=== PATIENT | male | born 1960 | race Caucasian/White ===

== ENCOUNTER 2020-04-05 15:28 | Emergency (ER) | payer BC, SELFPAY ==
--- NOTE | ~2020-04-05 | XR_ITS ---
EXAMINATION: XR chest 1V portable DATE: 04/05/2020 17:01 INDICATION: Altered mental status TECHNIQUE: frontal view of the chest was obtained. COMPARISON: Chest radiograph dated 10/31/2017 FINDINGS: The lungs remain clear with no focal airspace opacities, pulmonary edema, pleural effusion or pneumot horax. The cardiomediastinal silhouette is normal. Visualized bones and soft tissues are unremarkable . IMPRESSION: 1. No acute cardiopulmonary disease. Reviewed, dictated and finalized at location A.
--- NOTE | ~2020-04-05 | CT_ITS ---
EXAMINATION: CT brain wo con DATE: 04/05/2020 17:46 INDICATION: Altered mental status TECHNIQUE: Computed tomography (CT) of the head was performed without intravenous contrast. Sagittal and coronal reconstructions were performed. The mA was adjusted according to patient size. Iterative reconstruction technique was employed. The dose-length product was 605.33 mGy-cm. COMPARISON: None FINDINGS: No acute intracranial hemorrhage, acute infarction or abnormal extra axial fluid collection. Ventricl es are normal and symmetric. No mass/mass effect. The orbits, paranasal sinuses and mastoid air cells are normal. IMPRESSION: 1. Normal head CT. Reviewed, dictated and finalized at location A. IMPRESSION: 1. Normal head CT.
--- NOTE | 2020-04-05 15:34 | ECG_ITS ---
Measurements Intervals [place] Rate: 130 P: 64 AK: 158 QRS: 39 QRSD: 95 T: -15 QT: 305 QTc: 450 Interpretive Statements SINUS TACHYCARDIA FREQUENT VENTRICULAR PREMATURE COMPLEXES BORDERLINE ST-T WAVE ABNORMALITY- INFERIOR LEADS ABNORMAL ECG Electronically Signed On 04-05-2020 16:01:18 CDT by Santiago Delgado D.O.
[2020-04-05] MEDS: OLANZapine 10 MG INJ VIAL IM (15:40)
[2020-04-05] MEDS: WATER, STERILE FOR INJECTION 10 ML VIAL XX (15:40)
[2020-04-05 15:41] VITALS: BP 126/97; PULSE 130; RESP 20; TEMP 37.7; O2SAT 100
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
[2020-04-05 16:10] LABS: Basophils Percent Auto 0.3 % (0.2-1.2); Eosinophils Percent Auto 0.5 % (0-4.4); Hematocrit 40.7 % (42.0-52.0); Hemoglobin 14.3 g/dL (14.0-18.0); Immature Granulocyte Absolute 0.04 K/mm3 (0.00-0.031); Immature Granulocyte Percent A 0.5 % (0-0.5); Lymphocytes Absolute Auto 1.06 K/mm3 (0.9-3.2); Lymphocytes Percent Auto 13.7 % (18.3-44.2); Mean Corpuscular HGB Conc 35.1 g/dl (32-36); Mean Corpuscular Volume 85.3 fl (80-100); Mean Platelet Volume 10.7 fl (7.4-10.4); Monocytes Absolute Auto 0.4 K/mm3 (0.1-0.6); Monocytes Percent Auto 5.7 % (2.6-8.5); Neutrophils Absolute Auto 6.2 K/mm3 (1.3-6.7); Neutrophils Percent Auto 79.3 % (45.5-73.1); Platelet Count Result 205 k/mm3 (150-375); Red Blood Count 4.77 M/mm3 (4.6-6.20); Red Cell Distribution Width 12.6 % (11.5-14.5); White Blood Count 7.8 K/mm3 (4.5-10.0)
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
[2020-04-05 16:19] LABS: Prothrombin Time 12.7 Seconds (11.1-14.7)
[2020-04-05 16:23] LABS: Ethanol < 10 mg/dL (<10)
[2020-04-05 16:24] LABS: Alanine Aminotransferase 42 U/L (4-50); Albumin Level 4.4 g/dL (3.5-5.1); Alkaline Phosphatase 93 U/L (38-126); Aspartate Amino Transferase 39 U/L (17-59); Bilirubin,Total 0.5 mg/dL (0.2-1.3); Blood Urea Nitrogen 23 mg/dL (9-20); Calcium 9.5 mg/dL (8.4-10.2); Carbon Dioxide 21 mmol/L (22-30); Chloride 103 mmol/L (98-107); Creatine Kinase 453 U/L (55-170); Estimated Glomerular Filt Rate > 60; Glucose 155 mg/dL (75-110); Potassium 3.4 mmol/L (3.4-5.0); Sodium 135 mmol/L (137-145)
[2020-04-05 16:36] LABS: Troponin I < 0.012 ng/mL (0.000-0.034)
[2020-04-05 17:01] VITALS: BP 137/62; PULSE 123; RESP 22; RESP 24; O2SAT 100; O2SAT 96
[2020-04-05 17:02] LABS: Add Urine Microscopic? YES; Appearance Urine Clear (Clear); Bilirubin Urine Negative (Negative); Blood Urine Negative (Negative); Color Urine Yellow (Yellow); Glucose Urine UA Negative (Negative); Ketones Urine Trace mg/dL (Negative); Leukocyte Esterase Ur Negative LEU/UL (Negative); Mucus Urine Rare /lpf; Nitrate Urine Negative (Negative); Protein Urine Negative (Negative); Specific Grav Ur 1.023 (1.001-1.035); Urobilinogen Urine Negative mg/dL (<2.0); WBC Urine 0-3 /hpf
[2020-04-05] MEDS: SODIUM CHLORIDE 0.9% IV 1,000 ML 999 ML IV CONT (17:07)
[2020-04-05 17:14] LABS: Amphetamine Screen Urine Negative (Negative); Barbiturate Screen Urine Negative (Negative); Benzodiazepines Screen Urine Negative (Negative); Cannabinoid Screen Urine Positive (Negative); Cocaine Screen Urine Negative (Negative); Methadone Screen Urine Negative (Negative); Opiate Screen Urine Negative (Negative); Phencyclidine Screen Urine Negative (Negative)
[2020-04-05 17:15] VITALS: BP 117/82; PULSE 109; RESP 12; O2SAT 100
[2020-04-05] MEDS: ACETAMINOPHEN 500 MG TABLET 1000 MG PO (17:49)
[2020-04-05 18:46] VITALS: BP 134/88; PULSE 88; RESP 19; O2SAT 99
[2020-04-05 22:28] VITALS: BP 117/72; PULSE 67; RESP 18; TEMP 36.6; O2SAT 98
--- NOTE | 2020-04-05 22:44 | PC.NURSE ---
Paperwork faxed to [facility] at this time.
--- NOTE | 2020-04-05 22:49 | PC.NURSE ---
Addendum entered by Elsa Oviedo 04/05/20 23:36: Received fax confirmation. Successful transmission Original Note: Faxed packet to [facility], [place].
--- NOTE | 2020-04-05 23:54 | PC.NURSE ---
Paperwork faxed to [facility].
--- NOTE | 2020-04-06 00:50 | PC.NURSE ---
Per Chivo Becker, she will call back after reviewing chart.
[2020-04-06 02:52] VITALS: BP 137/74; PULSE 71; RESP 17; TEMP 37.1; O2SAT 100
--- NOTE | 2020-04-06 03:00 | PC.NURSE ---
Patient accepted at [facility]. Charge nurse to call back for report.
--- NOTE | 2020-04-06 04:33 | PC.NURSE ---
COVID questionnaire faxed back to [facility]. Awaiting call back at this time.
--- NOTE | 2020-04-06 05:11 | PC.NURSE ---
Patient denied at [facility], states patient is too physical and we have no beds available.
[2020-04-06 05:49] VITALS: BP 128/63; PULSE 71; RESP 16; O2SAT 94
--- NOTE | 2020-04-06 06:36 | PC.NURSE ---
COVID questionnaire re-faxed to [facility], per Chivo at [facility] weigher and charger will be calling for report on patient.
--- NOTE | 2020-04-06 07:24 | PC.NURSE ---
Assumed care of pt. Pt resting on bed. Sitter at bedside. Breakfast ordered
[2020-04-06] MEDS: ACETAMINOPHEN 500 MG TABLET 1000 MG PO (07:59)
[2020-04-06 08:04] VITALS: BP 165/96; PULSE 87; RESP 18; O2SAT 100
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
--- NOTE | 2020-04-06 08:15 | PC.NURSE ---
Pt son called and updated that pt will be transferred and that he wants him to come see him before he leaves.
[2020-04-06] MEDS: TELMISARTAN 40 MG TABLET 80 MG PO (08:28)
[2020-04-06] MEDS: LEVOTHYROXINE SODIUM 125 MCG TABLET PO (08:28)
--- NOTE | 2020-04-06 08:28 | PC.NURSE ---
[facility] called for transport. ETA [id number]
[2020-04-06 09:11] VITALS: BP 162/97
[2020-04-06] MEDS: LIOTHYRONINE SODIUM 5 MCG TABLET PO (09:11)
--- NOTE | 2020-04-06 09:26 | PC.NURSE ---
Pt son in the room, states we just want to sign out I state that they can't do that he says Well we are going to get a insurance processing clerk then Pt stating over and over I was traumatized, I was like a grape that got squeezed and juice came out, I had a panic attack, Im normal.
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
== END 2020-04-06 10:07 ==
PROVIDERS: Emergency Medicine; Emergency Provider Emergency Medicine; PCP Family Medicine
DX: F23 Brief psychotic disorder (principal); R00.0 Tachycardia, unspecified; R94.31 Abnormal electrocardiogram [ECG] [EKG]; I49.3 Ventricular premature depolarization; E78.5 Hyperlipidemia, unspecified; I10 Essential (primary) hypertension; E03.9 Hypothyroidism, unspecified
CPT/HCPCS: 36415; 51701; 70450; 71045; 80053; 80307; 81001; 82550; 84443; 84484; 85025; 85610; 85730; 93005; 96360; 96361; 96372; 99285; A9270; J7030

== ENCOUNTER 2020-04-12 16:29 | Observation (INO) | payer BC, SELFPAY ==
[2020-04-12] VITALS (10 sets, daily range): BP systolic 110–142; BP diastolic 62–88; PULSE 65–105; RESP 12–30; TEMP 35.8–36.8; O2SAT 94–99; BMI 31.8
--- NOTE | ~2020-04-12 | NM_ITS ---
EXAMINATION: NM russ stress w perfusion DATE: 04/13/2020 15:22 INDICATION: Elevated troponin TECHNIQUE: Rest images were obtained following intravenous administration of 10 mCi Tc99m tetrofosmin (Myoview). The patient was infused intravenously with Lexiscan (Regadenoson). Then, 28.9 mCi Tc99m t etrofosmin (Myoview) was administered intravenously, and stress images were obtained. Data was recons tructed into short axis and horizontal and vertical long axis SPECT images. Gated SPECT images were a lso obtained. COMPARISON: None. FINDINGS: Small mild nonreversible perfusion defect consistent with infarct involving the apical late ral and mid inferolateral segments. No significant reversibility appreciated to suggest ischemia. Th ere is normal left ventricular chamber size, wall motion and ejection fraction. Left ventricular eje ction fraction measures 61%. IMPRESSION: 1. Small mild infarct at the apical lateral and mid inferolateral segments without reversible ischemi a. 2. Left ventricular ejection fraction measuring 61%. Reviewed, dictated and finalized at location A. IMPRESSION: 1. Small mild infarct at the apical lateral and mid inferolateral segments with out reversible ischemia. 2. Left ventricular ejection fraction measuring 61%.
--- NOTE | ~2020-04-12 | CT_ITS ---
EXAMINATION: CTA chest PE protocol EXAM DATE: 04/12/2020 18:32 INDICATION: Shortness of breath and elevated d-dimer. TECHNIQUE: Spiral CTA of the chest (pulmonary arteries) was performed with 100 cc Omnipaque 350 intr avenous contrast injection. Images were acquired during the pulmonary arterial phase. Coronal maxi mum intensity projection 3D-reconstructions were created by the technologist on dedicated workstation . Axial, coronal and sagittal reformatted images were reviewed. The dose-length product (DLP) for t his examination was 691.29 mGy-cm. The exposure was tailored according to patient size (auto mA exp osure control), and iterative reconstruction (ASIR) was used as additional dose reduction technique. Comparison is made to prior examination from 06/05/2016. FINDINGS: Pulmonary arteries are well opacified and without intraluminal filling defects. No thora cic aortic dissection. There is mosaic attenuation involving both lungs, mostly in the lower lobes. This is suspected to be most likely air trapping, was present on prior study. Previously seen lingula r 7 mm opacity has resolved, was probably atelectasis. There are no pleural or pericardial effusions. Tracheobronchial tree is patent. There is no media stinal, hilar or axillary lymphadenopathy. There is no pneumothorax. Heart normal in size. Ther e is mild coronary arterial calcification, arterial sclerosis. Upper abdomen is unremarkable. Ther e is mild thoracic spondylosis without osteoblastic or osteolytic lesions identified. IMPRESSION: 1. No pulmonary emboli, or acute findings. 2. Mild basilar predominant Mosaic attenuation probably air trapping unchanged Reviewed, dictated and finalized at location A.
--- NOTE | 2020-04-12 16:48 | ECG_ITS ---
Measurements Intervals [place] Rate: 101 P: 37 [place]: 157 QRS: -5 QRSD: 93 T: 3 QT: 321 QTc: 417 Interpretive Statements SINUS TACHYCARDIA VENTRICULAR PREMATURE COMPLEX NONSPECIFIC ST ELEVATION IN ANT/LAT LEADS BORDERLINE ST-T WAVE ABNORMALITY- INFERIOR LEADS BORDERLINE ECG Electronically Signed On 04-12-2020 18:24:00 CDT by Santiago Delgado D.O.
--- NOTE | 2020-04-12 17:10 | ED.GENADULT ---
HPI - General Adult General Chief complaint: Recheck/Abnormal Lab/Rx Stated complaint: PCP THINKS IM HAVING A HEART ATTACK Time Seen by Provider: 04/12/20 16:37 Source: patient and other Mode of arrival: ambulatory Limitations: no limitations History of Present Illness HPI narrative: 60-year-old male A week ago he presented here acutely and violently psychotic in police custody and was sedated and ultimately transferred to [facility] He was stabilized, and they felt like his symptoms were medically induced due to a urinary tract infection and he was discharged from there yesterday Apparently at some point he was to receive a medication injection of some sort, seems likely that it may have been an antipsychotic and maybe even a long-acting antipsychotic as he says he was asked to sign a consent to get the shot so that he can go home. After getting the shot he reports that his blood pressure dropped and he had a syncopal episode. Subsequent to that he had an EKG done and a couple of troponins obtained It sounds like he may have been discharged before the results of those studies were reviewed He was contacted at home today by their medical hospitalist and advised to visit the ER here for further evaluation The patient reports no suspicious symptoms of any sort whatsoever, no chest pain shortness of breath sweats diaphoresis etc. since the episode of syncope He had a stress test done here it was normal The outside hospitalist did contact me and essentially confirm the story mentioned that the 2 troponins that he had were approximately 1.5 and 1.6, but unclear what their scale is and there were nonspecific but possibly ischemic changes on EKG Onset (ago): day(s) Related Data Home Medications Medication Instructions Recorded Confirmed liothyronine 5 mcg PO 04/06/20 telmisartan 80 mg PO 04/06/20 Allergies Allergy/AdvReac Type Severity Reaction Status Date / Time amlodipine Allergy Unknown Unknown Verified 04/12/20 16:42 benazepril Allergy Unknown Unknown Verified 04/12/20 16:42 lisinopril Allergy Unknown Unknown Verified 04/12/20 16:42 losartan Allergy Unknown Unknown Verified 04/12/20 16:42 Beta-Blockers AdvReac Palpitation Verified 04/12/20 16:43 (Beta-Adrenergic Bloc s Review of Systems Review of Systems: All systems reviewed & are unremarkable except as noted in HPI and below Constitutional: Constitutional: Denies chills, Denies fatigue, Denies fever(s), Denies headache(s) and Denies night sweats Eyes: Eyes: Denies change in vision, Denies loss of vision and Denies other visual disturbances ENT: Denies headache(s), Denies hoarseness, Denies epistaxis, Denies nasal congestion and Denies sore throat Cardiovascular: Cardiovascular: Denies chest pain, Denies leg edema, Denies palpitations and Denies dyspnea Respiratory: Respiratory: Denies cough, Denies dyspnea and Denies wheezing Gastrointestinal: Gastrointestinal: Denies abdominal pain, Denies diarrhea, Denies nausea and Denies vomiting Genitourinary: Genitourinary: Denies hematuria, Reports dysuria and Reports urinary frequency Musculoskeletal: Musculoskeletal: Denies abnormal gait, Denies deformity, Denies joint swelling, Denies muscle weakness and Denies numbness Integumentary/Breasts: Skin/Breast: Denies rash, Denies unusual bruising and Denies wounds Neurologic: Denies abnormal gait, Denies headache(s), Denies focal weakness, Denies loss of vision and Denies numbness Psychiatric: Psychiatric: Reports as per HPI Endocrine: Endocrine: Denies fatigue and Denies palpitations Hematologic/Lymphatic: Hematologic/Lymphatic: Denies easy bleeding and Denies easy bruising Allergic/Immunologic: Allergic/Immunologic: Denies wheezing PMFSH Past Medical History Medical History Anxiety Hemorrhoids HLD (hyperlipidemia) Hypertension Hypothyroidism Normal colonoscopy (~2015) Every 3-5 years
[2020-04-12 17:18] LABS: Basophils Percent Auto 0.4 % (0.2-1.2); Eosinophils Absolute Auto 0.2 K/mm3 (0-0.3); Eosinophils Percent Auto 2.6 % (0-4.4); Hematocrit 37.4 % (42.0-52.0); Immature Granulocyte Absolute 0.08 K/mm3 (0.00-0.031); Immature Granulocyte Percent A 1.1 % (0-0.5); Lymphocytes Absolute Auto 1.93 K/mm3 (0.9-3.2); Lymphocytes Percent Auto 25.4 % (18.3-44.2); Mean Corpuscular HGB Conc 34.8 g/dl (32-36); Mean Corpuscular Volume 86.2 fl (80-100); Mean Platelet Volume 10.3 fl (7.4-10.4); Monocytes Absolute Auto 0.8 K/mm3 (0.1-0.6); Monocytes Percent Auto 10.7 % (2.6-8.5); Neutrophils Absolute Auto 4.5 K/mm3 (1.3-6.7); Neutrophils Percent Auto 59.8 % (45.5-73.1); Platelet Count Result 227 k/mm3 (150-375); Red Blood Count 4.34 M/mm3 (4.6-6.20); Red Cell Distribution Width 12.2 % (11.5-14.5); White Blood Count 7.6 K/mm3 (4.5-10.0)
[2020-04-12 17:30] LABS: Alanine Aminotransferase 34 U/L (4-50); Alkaline Phosphatase 85 U/L (38-126); Aspartate Amino Transferase 31 U/L (17-59); Bilirubin,Total 0.3 mg/dL (0.2-1.3); Blood Urea Nitrogen 17 mg/dL (9-20); Calcium 8.9 mg/dL (8.4-10.2); Carbon Dioxide 22 mmol/L (22-30); Chloride 101 mmol/L (98-107); Estimated Glomerular Filt Rate > 60; Glucose 136 mg/dL (75-110); Potassium 4.3 mmol/L (3.4-5.0); Sodium 133 mmol/L (137-145)
[2020-04-12 17:33] LABS: Add Urine Microscopic? YES; Appearance Urine Clear (Clear); Bilirubin Urine Negative (Negative); Blood Urine 1+ (Negative); Color Urine Straw (Yellow); Glucose Urine UA Negative (Negative); Ketones Urine Negative (Negative); Leukocyte Esterase Ur Negative LEU/UL (Negative); Nitrate Urine Negative (Negative); Protein Urine Negative (Negative); RBC Urine 0-2 /hpf (0-2); Specific Grav Ur 1.012 (1.001-1.035); Urobilinogen Urine Negative mg/dL (<2.0); WBC Urine 0-3 /hpf
[2020-04-12 17:44] LABS: Troponin I 0.995 ng/mL (0.000-0.034)
[2020-04-12] MEDS: ENOXAPARIN 100 MG/ML SYRINGE SUB-Q (18:36)
--- NOTE | 2020-04-12 21:16 | ADMGEN ---
This patient, Seth Vazquez, was admitted to IMU Room 202-01. Patient/family oriented to hospital policies and general routines including ID bracelet, bed and alarms, visiting hours, pain management, procedures, bathroom and other care routines, personal items, smoking policy, room service/diet, and visiting hours. Valuables list has been completed. Information on how to activate the Rapid Response Team has been discussed. Patient/Family are encouraged to report perceived risks to care and to ask questions if they do not understand what they are told or what they should do.
[2020-04-12 21:28] LABS: Troponin I 0.914 ng/mL (0.000-0.034)
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
[2020-04-12] MEDS: CEPHALEXIN 500 MG CAPSULE PO (23:32)
[2020-04-12] MEDS: DIAZEPAM 5 MG TABLET PO (23:41)
[2020-04-13] VITALS (10 sets, daily range): BP systolic 118–129; BP diastolic 63–86; PULSE 16–86; RESP 14–20; TEMP 36.2–36.8; O2SAT 98–100
--- NOTE | 2020-04-13 | ECHO_ITS ---
Patient Info Name: Seth Vazquez Age: 60 years : 1960 Gender: Male Ht: 72 in Wt: 250 lbs BSA: 2.44 m2 BP: 118 / 63 mmHg Heart Rhythm: Sinus Rhythm Technical Quality: Good Exam Date: 04/13/2020 10:15 AM Exam Location: [facility] Pulmonary Patient Status: Inpatient Admit Date: 04/12/2020 Staff Ordering Physician: Joey Waldrop MD Agriculture Extension Specialist: Tong Raphael, MAHENDRA, RT Attending Provider: Marciano Marques MD Referring Physician: Benjie ROONEY; Exam Type: CA echo doppler color flow Study Info Indications I43 - Cardiomyopathy in diseases classified elsewhere Complete two-dimensional, color flow and Doppler transthoracic echocardiogram is performed. Summary 1. Normal left ventricular size with mild concentric hypertrophy. Normal left ventricular systolic function with no focal wall motion abnormalities. The estimated ejection fraction is 60-65%. However, the global longitudinal strain was diminished at -14%, suggesting early systolic dysfunction. Normal diastolic function. 2. Mildly dilated inferior vena cava which is poorly visualized. 3. Right ventricular chamber dimension is mildly enlarged with normal systolic function. 4. No significant valve disease. 5. Normal estimated pulmonary pressure. 6. Normal sinus rhythm. Left Ventricle Left ventricular chamber dimension is normal. Left ventricular systolic function is normal, estimated at 60-65%. There is mildly increased left ventricular wall thickness. Left ventricular septal wall motion is normal. The left ventricular diastolic function is normal. Global longitudinal strain is moderately elevated at 14 %. Right Ventricle Right ventricular chamber dimension is mildly enlarged with normal systolic function. Right ventricular systolic function is normal. Left Atria Left atrial chamber dimension is normal. Right Atria Right atrial chamber dimension is normal. Aortic Valve The aortic valve is trileaflet. There is no aortic valve sclerosis. There is no aortic valve stenosis. There is no aortic valve regurgitation. Pulmonic Valve The pulmonic valve is normal. There is no pulmonic valve stenosis. There is no pulmonic regurgitation. Mitral Valve The mitral valve has normal leaflets. There is no mitral valve stenosis. There is trace mitral valve regurgitation. Tricuspid Valve The tricuspid valve leaflets are normal. There is no significant tricuspid valve stenosis. There is trace tricuspid valve regurgitation. No pulmonary hypertension, estimated pulmonary arterial systolic pressure is 29 mmHg. Pericardium/Pleural The pericardium appears normal. There is no pericardial effusion. Inferior Vena Cava Mildly dilated inferior vena cava which is poorly visualized. Aorta The aortic root size at the sinus of Valsalva is normal. The prox ascending aorta size is normal. Left Ventricular Outflow Tract Name Value Normal LVOT 2D LVOT Diameter 2.3 cm LVOT Doppler LVOT Peak Gradient 2 mmHg LVOT Mean Gradient 1 mmHg LVOT VTI 14 cm
[2020-04-13 00:42] LABS: Troponin I 0.835 ng/mL (0.000-0.034)
[2020-04-13 05:52] LABS: Basophils Percent Auto 0.7 % (0.2-1.2); Eosinophils Absolute Auto 0.3 K/mm3 (0-0.3); Eosinophils Percent Auto 5.1 % (0-4.4); Hematocrit 37.6 % (42.0-52.0); Hemoglobin 12.5 g/dL (14.0-18.0); Immature Granulocyte Absolute 0.11 K/mm3 (0.00-0.031); Immature Granulocyte Percent A 1.9 % (0-0.5); Lymphocytes Absolute Auto 2.27 K/mm3 (0.9-3.2); Lymphocytes Percent Auto 39.9 % (18.3-44.2); Mean Corpuscular HGB Conc 33.2 g/dl (32-36); Mean Corpuscular Hemoglobin 29.7 pg (26-34); Mean Corpuscular Volume 89.3 fl (80-100); Mean Platelet Volume 10.5 fl (7.4-10.4); Monocytes Absolute Auto 0.7 K/mm3 (0.1-0.6); Monocytes Percent Auto 11.6 % (2.6-8.5); Neutrophils Absolute Auto 2.3 K/mm3 (1.3-6.7); Neutrophils Percent Auto 40.8 % (45.5-73.1); Platelet Count Result 206 k/mm3 (150-375); Red Blood Count 4.21 M/mm3 (4.6-6.20); Red Cell Distribution Width 12.6 % (11.5-14.5); White Blood Count 5.7 K/mm3 (4.5-10.0)
[2020-04-13 06:07] LABS: Alanine Aminotransferase 35 U/L (4-50); Albumin Level 3.6 g/dL (3.5-5.1); Alkaline Phosphatase 80 U/L (38-126); Aspartate Amino Transferase 27 U/L (17-59); Bilirubin,Total 0.1 mg/dL (0.2-1.3); Blood Urea Nitrogen 15 mg/dL (9-20); Calcium 8.7 mg/dL (8.4-10.2); Carbon Dioxide 27 mmol/L (22-30); Chloride 102 mmol/L (98-107); Estimated CRCL calculation 90 ml/min; Estimated Glomerular Filt Rate > 60; Glucose 102 mg/dL (75-110); Magnesium 2.3 mg/dL (1.6-2.3); Potassium 4.3 mmol/L (3.4-5.0); Sodium 135 mmol/L (137-145)
[2020-04-13] MEDS: LEVOTHYROXINE SODIUM 125 MCG TABLET PO (06:14)
[2020-04-13] MEDS: CEPHALEXIN 500 MG CAPSULE PO ×2 (06:14→19:41)
[2020-04-13 06:35] LABS: Prostate Specific Antigen 17.3 ng/mL (< OR = 4.0)
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
--- NOTE | 2020-04-13 09:25 | EST_ITS ---
Patient Info Name: Seth Vazquez Age: 60 years : 1960 Gender: Male Ht: 72 in Wt: 234 lbs BSA: 2.35 m2 Heart Rhythm: Sinus Rhythm Technical Quality: Excellent Exam Date: 04/13/2020 1:29 PM Exam Location: [facility] Stress Patient Status: Inpatient Admit Date: 04/12/2020 Staff Ordering Physician: Allison Moore MD Attending Provider: Marciano Marques MD Exercise Technologist: Ana Sarah, SUSANCS Nurse: Keke Frank, ANP, ACNP-BC Exam Type: CA stress russ w NM Study Info A regadenoson stress test was performed. Summary 1. No abnormal ST-T wave changes with lexiscan. 2. Please correlate with nuclear medicine images, reported separately. Protocol: Lexiscan Stress ECG Details Stage: REST Duration (min): 1 min : 59 sec HR (bpm): 77 SBP (mmHg): 113 DBP (mmHg): 82 Stage: REST Duration (min): 15 min : 58 sec HR (bpm): 78 SBP (mmHg): 113 DBP (mmHg): 82 Stage: STAGE 1 Duration (min): 1 min : 0 sec HR (bpm): 85 SBP (mmHg): 140 DBP (mmHg): 84 Stage: RECOVERY Duration (min): 1 min : 0 sec HR (bpm): 100 SBP (mmHg): 140 DBP (mmHg): 76 Stage: RECOVERY Duration (min): 2 min : 0 sec HR (bpm): 96 SBP (mmHg): 140 DBP (mmHg): 76 Stage: RECOVERY Duration (min): 3 min : 0 sec HR (bpm): 100 SBP (mmHg): 124 DBP (mmHg): 62 Stage: RECOVERY Duration (min): 3 min : 46 sec HR (bpm): 95 SBP (mmHg): 124 DBP (mmHg): 62 Rest HR: 78 bpm Peak HR: 103 bpm Rest Sys BP: 113 mmHg Peak Sys BP: 140 mmHg Max Pred HR: 162 bpm % Max Pred HR: 64 % Target HR: 138 bpm Max RPP: 14,420 bpm*mmHg BP Response: Normal blood pressure response Termination Reason: Completed protocol Cardiac Symptoms: Shortness of breath Total Time: 1 min : 0 sec Rest Chne BP: 82 mmHg Peak Chen BP: 84 mmHg Total Dose: 0.4 mg Resting ECG Normal sinus rhythm. Stress ECG No abnormal ST/T wave changes with exercise. Arrhythmias Occasional PVCs. Report Signatures
[2020-04-13] MEDS: LIOTHYRONINE SODIUM 5 MCG TABLET PO ×2 (09:51→19:42)
[2020-04-13] MEDS: ENOXAPARIN 120 MG/0.8 ML SYRINGE 115 MG SUB-Q (09:53)
[2020-04-13] MEDS: ASPIRIN 81 MG CHEWABLE TABLET PO (09:54)
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
--- NOTE | 2020-04-13 14:40 | PC.NURSE ---
1205- to cardiology dept for Lexiscan via w/c accompanied by staff
[2020-04-13] MEDS: TELMISARTAN 40 MG TABLET 80 MG PO (15:10)
--- NOTE | 2020-04-13 16:09 | PHAR ---
HOME MED- OMEPRAZOLE 40MG CAP PO DAILY VERIFIED AND SENT
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
--- NOTE | 2020-04-19 17:32 | PM.DS ---
DS: Admitting Diagnosis Admitting Diagnosis Admitting Diagnosis: Other specified abnormal findings of blood chemistry DS: Summary Time Spent with Patient Time attestation: Total time spent providing and/or coordinating discharge services: Discharge Plan Discharge Attending physician on discharge: Marciano Marques Consulting providers: Marbella Guerrier ; Willie Moreland ; Dionicio Huber ; Santiago Delgado ; Allison Moore Discharging Clinician: Marciano Marques Anticipated Discharge Date/Time: 04/13/20 19:46 Patient Disposition: Home, Self-Care Activity: as tolerated Diet: heart healthy Discharge Instructions: Please follow up with your doctor to discuss further about your elevated PSA as we have talked about. Call 911 if you develop chest pain or other worrisome symptoms. Follow up with [facility], [place] office at [facility] [address] the office will call you with an appointment with Dr Moore next week. Patient Instructions: Antibiotic Form, Chest Pain (DC), Chronic Hypertension (DC), Anxiety (GEN) Stand Alone Forms: General Discharge Information Follow-up/Referrals: Allison Moore MD [Physician] - None (The office will call you with an appointment next week) Discharge Medications: New atorvastatin 40 mg Tablet 40 mg PO DAILY Qty: 30 RF: 3 aspirin [Children's Aspirin] 81 mg Tablet,Chewable 81 mg PO DAILY@0800 Qty: 30 RF: 3 Continued liothyronine 5 mcg tablet 5 mcg PO BID RF: 0 telmisartan 80 mg tablet 80 mg PO DAILY RF: 0 sulfamethoxazole-trimethoprim 800-160 mg Tablet 1 tablet PO Q12H RF: 0 diazepam 2 mg Tablet 5 mg PO BID PRN (Reason: Anxiety) RF: 0 cephalexin 500 mg Capsule 500 mg PO Q6H RF: 0 omeprazole 40 mg capsule,delayed release(DR/EC) 40 mg PO DAILY RF: 0 levothyroxine [Synthroid] 125 mcg tablet 125 mcg PO DAILY Qty: 90 RF: 1 Date of admission: 04/12/20 18:50 Primary Care Provider: CATALINAANGY Admitting Provider: Marciano Marques Discharge Date/Time: 04/13/20 20:47 Attending physician on admission: Marciano Marques Condition: Stable Quality VTE Prophylaxis VTE prophylaxis: pharmacologic ordered
== END 2020-04-13 20:47 | disposition home or self-care (01) ==
LOC: ANHED 19:44 → ANHIMU 19:57
PROVIDERS: Nurse Practitioner; Admitting Provider Internal Medicine; Emergency Provider Emergency Medicine; PCP Family Medicine; Visit Provider Internal Medicine
DX: R79.89 Other specified abnormal findings of blood chemistry (principal); E03.9 Hypothyroidism, unspecified; F41.9 Anxiety disorder, unspecified; I10 Essential (primary) hypertension; N40.0 Benign prostatic hyperplasia without lower urinary tract symptoms; N39.0 Urinary tract infection, site not specified; I43 Cardiomyopathy in diseases classified elsewhere; Z79.899 Other long term (current) drug therapy; Z86.79 Personal history of other diseases of the circulatory system
CPT/HCPCS: 36415; 71275; 78452; 80053; 81001; 83735; 84153; 84443; 84484; 85025; 93005; 93017; 93306; 96372; 99285; A9270; A9502; G0378; J1650; J2785; Q9967

== ENCOUNTER 2020-04-28 16:02 | Outpatient (CLI) | payer BC, SELFPAY ==
[2020-04-28 16:32] LABS: Basophils Percent Auto 0.6 % (0.2-1.2); Eosinophils Absolute Auto 0.1 K/mm3 (0-0.3); Eosinophils Percent Auto 1.2 % (0-4.4); Hematocrit 39.4 % (42.0-52.0); Hemoglobin 13.8 g/dL (14.0-18.0); Immature Granulocyte Absolute 0.03 K/mm3 (0.00-0.031); Immature Granulocyte Percent A 0.4 % (0-0.5); Lymphocytes Absolute Auto 2.35 K/mm3 (0.9-3.2); Lymphocytes Percent Auto 32.4 % (18.3-44.2); Mean Corpuscular Hemoglobin 30.1 pg (26-34); Mean Corpuscular Volume 85.8 fl (80-100); Mean Platelet Volume 9.7 fl (7.4-10.4); Monocytes Absolute Auto 0.7 K/mm3 (0.1-0.6); Monocytes Percent Auto 10.2 % (2.6-8.5); Neutrophils Percent Auto 55.2 % (45.5-73.1); Platelet Count Result 242 k/mm3 (150-375); Red Blood Count 4.59 M/mm3 (4.6-6.20); Red Cell Distribution Width 12.9 % (11.5-14.5); White Blood Count 7.3 K/mm3 (4.5-10.0)
[2020-04-28 16:43] LABS: Add Urine Microscopic? YES; Appearance Urine Clear (Clear); Bilirubin Urine Negative (Negative); Blood Urine 2+ (Negative); Color Urine Straw (Yellow); Glucose Urine UA Negative (Negative); Ketones Urine Negative (Negative); Leukocyte Esterase Ur Negative LEU/UL (NEGATIVE); Nitrate Urine Negative (Negative); Protein Urine Negative (Negative); RBC Urine 0-2 /hpf (0-2); Specific Grav Ur 1.008 (1.001-1.035); Urobilinogen Urine Negative mg/dL (<2.0); WBC Urine 0-3 /hpf (0-3)
[2020-04-28 16:53] LABS: Alanine Aminotransferase 38 U/L (4-50); Albumin Level 4.4 g/dL (3.5-5.1); Alkaline Phosphatase 96 U/L (38-126); Aspartate Amino Transferase 30 U/L (17-59); Bilirubin,Total 0.5 mg/dL (0.2-1.3); Blood Urea Nitrogen 15 mg/dL (9-20); Carbon Dioxide 25 mmol/L (22-30); Chloride 100 mmol/L (98-107); Cholesterol 147 mg/dL (0-200); Estimated Glomerular Filt Rate > 60; Glucose 94 mg/dL (75-110); HDL Direct 34 mg/dL; Potassium 3.7 mmol/L (3.4-5.0); Sodium 134 mmol/L (137-145); Triglycerides 110 mg/dL (<150)
[2020-04-28 17:04] LABS: LDL Cholesterol Direct 86 mg/dL
== END 2020-04-28 16:03 | disposition home or self-care (01) ==
DX: N39.0 Urinary tract infection, site not specified (principal)
CPT/HCPCS: 36415; 80053; 80061; 81001; 85025; 87086

== ENCOUNTER 2020-05-09 00:53 | Outpatient (CLI) | payer BC, SELFPAY ==
[2020-05-09 19:24] LABS: SARS-CoV-2 RNA PCR Negative
== END 2020-05-09 00:54 | disposition home or self-care (01) ==
LOC: ANHCOVIDDT 00:54
PROVIDERS: PCP Family Medicine; Visit Provider Internal Medicine Cardiovascular Disease
DX: Z01.818 Encounter for other preprocedural examination (principal); Z11.59 Encounter for screening for other viral diseases
CPT/HCPCS: 87635; C9803; U0003

== ENCOUNTER 2020-05-11 05:29 | Day surgery (SDC) | payer BC, SELFPAY ==
[2020-05-10 12:43] VITALS: BMI 31.4
[2020-05-11] VITALS (16 sets, daily range): BP systolic 64–133; BP diastolic 41–89; PULSE 43–81; RESP 14–18; TEMP 35.8–36.6; O2SAT 95–99; BMI 32.1
--- NOTE | 2020-05-11 08:28 | SUR.PREOP ---
ARRIVES AMBULATORY FROM OUTPATIENT REGISTRATION TO [facility] 4 FOR SCHEDULED LHC W/ DR. ROMERO. A&OX4 ON ARRIVAL, DENIES PAIN OR SOB. ORIENTED TO ROOM, PLAN OF CARE, PROCEDURE. QUESTIONS ANSWERED. VOICED UNDERSTANDING OF ALL. IV STARTED, LABS SENT, VS OBTAINED, PULSES MARKED, SKIN PREP COMPLETED, PERMIT SIGNED. WILL MONITOR.
[2020-05-11 08:45] LABS: Basophils Percent Auto 0.3 % (0.2-1.2); Eosinophils Absolute Auto 0.1 K/mm3 (0-0.3); Eosinophils Percent Auto 2.1 % (0-4.4); Hematocrit 42.8 % (42.0-52.0); Hemoglobin 14.5 g/dL (14.0-18.0); Immature Granulocyte Absolute 0.02 K/mm3 (0.00-0.031); Immature Granulocyte Percent A 0.3 % (0-0.5); Lymphocytes Absolute Auto 2.19 K/mm3 (0.9-3.2); Mean Corpuscular HGB Conc 33.9 g/dl (32-36); Mean Corpuscular Hemoglobin 29.1 pg (26-34); Mean Corpuscular Volume 85.8 fl (80-100); Mean Platelet Volume 9.9 fl (7.4-10.4); Monocytes Absolute Auto 0.6 K/mm3 (0.1-0.6); Monocytes Percent Auto 9.7 % (2.6-8.5); Neutrophils Absolute Auto 2.9 K/mm3 (1.3-6.7); Neutrophils Percent Auto 49.6 % (45.5-73.1); Platelet Count Result 158 k/mm3 (150-375); Red Blood Count 4.99 M/mm3 (4.6-6.20); Red Cell Distribution Width 12.4 % (11.5-14.5); White Blood Count 5.8 K/mm3 (4.5-10.0)
[2020-05-11 08:57] LABS: Anion Gap 15.4 mmol/L (7-16); Blood Urea Nitrogen 20 mg/dL (9-20); Calcium 9.3 mg/dL (8.4-10.2); Carbon Dioxide 23 mmol/L (22-30); Chloride 102 mmol/L (98-107); Estimated CRCL calculation 81 ml/min; Estimated Glomerular Filt Rate > 60; Glucose 101 mg/dL (75-110); Potassium 4.4 mmol/L (3.4-5.0); Sodium 136 mmol/L (137-145)
[2020-05-11 08:59] LABS: Prothrombin Time 12.5 Seconds (11.1-14.7)
--- NOTE | 2020-05-11 11:26 | WPDMODSED ---
Moderate Sedation Note-Pt Data Patient Data Allergies Allergy/AdvReac Type Severity Reaction Status Date / Time benazepril Allergy Severe Swelling Verified 05/11/20 09:49 of Lip/Tongue/Throat lisinopril Allergy Severe Swelling Verified 05/11/20 09:49 of Lip/Tongue/Throat losartan Allergy Unknown Unknown Verified 05/11/20 09:49 amlodipine AdvReac Unknown Unknown Verified 05/11/20 09:49 Beta-Blockers AdvReac Palpitation Verified 05/11/20 09:49 (Beta-Adrenergic Bloc s Home Medications Medication Instructions Recorded Confirmed Type levothyroxine 125 mcg tablet 125 mcg PO DAILY #90 tablet 11/15/19 05/11/20 Rx liothyronine 5 mcg PO BID 04/06/20 05/11/20 History telmisartan 80 mg PO DAILY 04/06/20 05/11/20 History diazepam 5 mg PO BID PRN 04/12/20 05/11/20 History omeprazole 40 mg PO DAILY 04/12/20 05/10/20 History aspirin [Children's Aspirin] 81 mg PO DAILY@0800 #30 tablet 04/13/20 05/11/20 Rx atorvastatin 40 mg PO DAILY #30 tablet 04/13/20 05/10/20 Rx levofloxacin [Levaquin] 500 mg PO DAILY 05/10/20 05/10/20 History nitroglycerin [Nitrostat] 0.4 mg SUBLINGUAL Q5M PRN 05/10/20 05/10/20 History sulfamethoxazole-trimethoprim 1 tablet PO Q12H 05/10/20 05/10/20 History Current Medications: Active Medications Sodium Chloride (Normal Saline Iv) 500 mls @ 100 mls/hr IV CONT .Q5H MATHEW Sedation/Anesthesia: No previous sedation/anesthesia problems (including family history). [facility] Past Medical History Medical History Anxiety BPH (benign prostatic hyperplasia) Hemorrhoids HLD (hyperlipidemia) Patient denies Hypertension Hypothyroidism Normal colonoscopy (~2015) Every 3-5 years S/P ORIF (open reduction internal fixation) fracture Left ankle Shingles Surgical History Surgical History H/O hemorrhoidectomy Family History Family History Father Hypertension Mother Hypertension Grandparent Hypertension Cerebrovascular accident Other Family history of cardiovascular disease Social History Social History Social History: Patient states that he uses CBD but was found to be positive for cannabinoids on the . He has 3 children. He is in the process of getting after being 35 years . It is taking him a couple years to get a divorce. He works for a [employer] company. He denies any alcohol. He is a full code and does not have a power criminal defense attorney. He lives on his own. Smoking status: Light tobacco smoker Tobacco type: cigarettes Second hand tobacco smoke exposure: Yes Alcohol intake: current Substance use type: does not use Living arrangements: alone Gender identity (if verbalized by the patient): Male Spiritual care concerns: No Mod Sed Physical Exam Physical Exam Pre Procedural Exam: Normal: Appearance, Eyes, Ears, Nose, Neck, Throat, Airway, Lungs, Heart Size, Heart Rate, Heart Rhythm, Neuro Exam, Abdomen, Liver, Kidneys, Spleen, Breasts, Genitalia, Extremities and Skin Hours since solid foods: 8 Hours since liquid intake: 8 Internal Medicine - PN: Obj Da Vital Signs Vital Signs: Vital Signs - 24 hr 05/11/20 08:40 Temperature 36.6 C Pulse Rate 75 Respiratory Rate 17 Blood Pressure 129/78 Pulse Oximetry 96 Meds/Results Medications: Active Medications Generic Name Dose Route Start Last Admin Trade Name Freq PRN Reason Stop Dose Admin Sodium Chloride 500 mls @ 100 mls/hr 05/11/20 06:15 Normal Saline Iv IV CONT .Q5H MATHEW Labs CBC & Chem 7: 05/11/20 08:29 05/11/20 08:29 Labs: Laboratory Results - last 24 hr 05/11/20 05/11/20 05/11/20 08:29 08:29 08:29 WBC 5.8 RBC 4.99 Hgb 14.5 Hct 42.8 MCV 85.8 MCH 29.1 MCHC 33.9 RDW 12.4
--- NOTE | 2020-05-11 11:26 | WPDHPUPDATE1 ---
History and Physical Update Update Date/Time: 05/11/20 11:26 History and Physical has been reviewed, including an updated exam of the patient. There are NO changes in the patient's condition. Risks, benefits, and alternatives have been discussed and questions answered. Patient agrees to proceed with procedure.
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
--- NOTE | 2020-05-11 12:20 | SUR.PHASEII ---
BEGIN PHASE II RECOVERY. RETURNS TO [facility] VIA STRETCHER FROM CCL S/P C W/ DR. ROMERO. A&OX4 ON ARRIVAL, DENIES PAIN OR SOB. VSS. MONITOR SR. DRESSING TO R. GROIN PUNCTURE SITE C/D/I. SITE SOFT, NONTENDER, NO BLEEDING OR HEMATOMA NOTED. ANGIOSEAL CLOSURE DEVICE TO R. GROIN SITE. REVIEWED INSTRUCTIONS ON BEDREST AND ACTIVITY RESTRICTIONS WHILE ON BEDREST. VOICED UNDERSTANDING. BEDREST X 2 HOURS. R. PEDAL PULSE STRONG. WILL CONTINUE TO MONITOR.
[2020-05-11] MEDS: SODIUM CHLORIDE 0.9% IV 1,000 ML 125 ML IV CONT (15:00)
[2020-05-11 15:47] LABS: Glucose Point of Care 80 (65-105)
--- NOTE | 2020-05-11 17:30 | SUR.PHASEII ---
END PHASE II RECOVERY. SEE FLOWSHEET DOCUMENTATION FOR NOTATIONS ON EVENTS. PT. DISCHARGED HOME, OUT VIA WC W/ ALL PERSONAL BELONGINGS AND DISCHARGE INSTRUCTIONS TO DAUGHTER'S WAITING CAR. STEADY GAIT. SKIN WARM, DRY, PINK. DENIES DIZZINESS OR LIGHTHEADEDNESS WITH ACTIVITY. VSS. R. GROIN WAS WITHOUT CHANGE PRIOR TO DRESSING. R. PEDAL PULSE STRONG. VOICES NO C/O. NO DISTRESS NOTED.
== END 2020-05-11 17:30 | disposition home or self-care (01) ==
PROVIDERS: PCP Family Medicine; Visit Provider Internal Medicine Cardiovascular Disease
PROC: 4A023N7 Measurement of Cardiac Sampling and Pressure, Left Heart, Percutaneous Approach (ICD-10-PCS; CPT 93452; principal; 2020-05-11 10:00)
DX: I25.10 Atherosclerotic heart disease of native coronary artery without angina pectoris (principal); R94.39 Abnormal result of other cardiovascular function study; R79.89 Other specified abnormal findings of blood chemistry; R07.9 Chest pain, unspecified; I10 Essential (primary) hypertension; E03.9 Hypothyroidism, unspecified; E78.5 Hyperlipidemia, unspecified; N40.0 Benign prostatic hyperplasia without lower urinary tract symptoms; F41.9 Anxiety disorder, unspecified; Z79.82 Long term (current) use of aspirin; F17.210 Nicotine dependence, cigarettes, uncomplicated
CPT/HCPCS: 36415; 80048; 85025; 85610; 93458; C1760; C1887; C1894; G0269; J0461; J1644; J2250; J3010; J7040

== ENCOUNTER 2021-01-29 08:35 | Outpatient (CLI) | payer BC, SELFPAY ==
[2021-01-29 09:09] LABS: Hematocrit 44.7 % (42.0-52.0); Hemoglobin 16.2 g/dL (14.0-18.0); Mean Corpuscular HGB Conc 36.2 g/dl (32-36); Mean Corpuscular Hemoglobin 30.3 pg (26-34); Mean Corpuscular Volume 83.6 fl (80-100); Mean Platelet Volume 9.9 fl (7.4-10.4); Platelet Count Result 194 k/mm3 (150-375); Red Blood Count 5.35 M/mm3 (4.6-6.20); Red Cell Distribution Width 12.4 % (11.5-14.5); White Blood Count 5.7 K/mm3 (4.5-10.0)
[2021-01-29 09:12] LABS: Add Urine Microscopic? NO; Appearance Urine Clear (Clear); Bilirubin Urine Negative (Negative); Blood Urine Negative (Negative); Color Urine Yellow (Yellow); Glucose Urine UA Negative (Negative); Ketones Urine Negative (Negative); Leukocyte Esterase Ur Negative LEU/UL (NEGATIVE); Nitrate Urine Negative (Negative); Protein Urine Negative (Negative); Specific Grav Ur 1.012 (1.001-1.035); Urobilinogen Urine Negative mg/dL (<2.0)
[2021-01-29 09:18] LABS: Alanine Aminotransferase 19 U/L (4-50); Albumin Level 4.5 g/dL (3.5-5.1); Alkaline Phosphatase 91 U/L (38-126); Anion Gap 6 mmol/L (8-16); Aspartate Amino Transferase 21 U/L (17-59); Bilirubin,Total 0.8 mg/dL (0.2-1.3); Blood Urea Nitrogen 12 mg/dL (9-20); Calcium 9.1 mg/dL (8.4-10.2); Carbon Dioxide 27 mmol/L (22-30); Chloride 103 mmol/L (98-107); Cholesterol 190 mg/dL (0-200); Estimated Glomerular Filt Rate > 60; Glucose 105 mg/dL (75-110); HDL Direct 36 mg/dL; Potassium 4.1 mmol/L (3.4-5.0); Sodium 136 mmol/L (137-145); Triglycerides 77 mg/dL (<150)
[2021-01-29 09:29] LABS: LDL Cholesterol Direct 125 mg/dL
== END 2021-01-29 08:36 | disposition home or self-care (01) ==
PROVIDERS: PCP Family Medicine Sports Medicine; Visit Provider Family Medicine Sports Medicine
DX: Z00.00 Encounter for general adult medical examination without abnormal findings (principal); G47.00 Insomnia, unspecified; F41.1 Generalized anxiety disorder
CPT/HCPCS: 36415; 80053; 80061; 81003; 84443; 85027

== ENCOUNTER 2021-05-16 10:49 | Outpatient (CLI) | payer BC, SELFPAY ==
[2021-05-16 11:58] LABS: Basophils Percent Auto 0.5 % (0.2-1.2); Eosinophils Absolute Auto 0.1 K/mm3 (0-0.3); Eosinophils Percent Auto 1.5 % (0-4.4); Hematocrit 45.5 % (42.0-52.0); Hemoglobin 15.7 g/dL (14.0-18.0); Immature Granulocyte Absolute 0.06 K/mm3 (0.00-0.031); Immature Granulocyte Percent A 0.8 % (0-0.5); Lymphocytes Absolute Auto 3.51 K/mm3 (0.9-3.2); Lymphocytes Percent Auto 44.1 % (18.3-44.2); Mean Corpuscular HGB Conc 34.5 g/dl (32-36); Mean Corpuscular Hemoglobin 29.8 pg (26-34); Mean Corpuscular Volume 86.3 fl (80-100); Mean Platelet Volume 10.5 fl (7.4-10.4); Monocytes Absolute Auto 0.7 K/mm3 (0.1-0.6); Monocytes Percent Auto 8.2 % (2.6-8.5); Neutrophils Absolute Auto 3.6 K/mm3 (1.3-6.7); Neutrophils Percent Auto 44.9 % (45.5-73.1); Platelet Count Result 219 k/mm3 (150-375); Red Blood Count 5.27 M/mm3 (4.6-6.20); Red Cell Distribution Width 12.6 % (11.5-14.5)
== END 2021-05-16 10:50 | disposition home or self-care (01) ==
PROVIDERS: PCP Family Medicine Sports Medicine; Visit Provider Internal Medicine Gastroenterology
DX: M54.5 Low back pain (principal)
CPT/HCPCS: 36415; 85025

== ENCOUNTER 2021-06-01 02:43 | Day surgery (SDC) | payer BC, SELFPAY ==
[2021-05-23 13:38] VITALS: BMI 31.2
[2021-06-01 09:48] VITALS: BP 142/95; PULSE 88; RESP 16; TEMP 36; O2SAT 98; BMI 31.8
--- NOTE | 2021-06-01 10:01 | WPDHPUPDATE1 ---
History and Physical Update Update Date/Time: 06/01/21 10:01 Patient reports much less rectal bleeding since being seen in the office several weeks ago. He denies abdominal or rectal pain. CT scan suggested was never obtained. Plan to proceed with colonoscopy as described. History and Physical has been reviewed, including an updated exam of the patient. There are NO changes in the patient's condition. Risks, benefits, and alternatives have been discussed and questions answered. Patient agrees to proceed with procedure.
[2021-06-01] MEDS: LACTATED RINGERS 1,000 ML 150 ML IV CONT (10:05)
--- NOTE | 2021-06-01 10:14 | WPDANESEPPF ---
Anes - Initial Pre Proc Eval Procedure: Operation Date: 06/01/21 10:15 Proposed Procedures p Colonoscopy - Joey Bryan MD Date/Time: 06/01/21 10:14 Surgeon: Joey Bryan MD Pre Op Diagnosis: GI Bleed Patient Data Age: 61 Gender: M Height: 1.83 m Weight: 106.7 kg Last Vital Signs Temp 36.0 C L 06/01/21 09:48 Pulse 88 06/01/21 09:48 Resp 16 06/01/21 09:48 BP 142/95 H 06/01/21 09:48 Pulse Ox 98 06/01/21 09:48 Allergies Allergy/AdvReac Type Severity Reaction Status Date / Time benazepril Allergy Severe Swelling Verified 06/01/21 09:45 of Lip/Tongue/Throat lisinopril Allergy Severe Swelling Verified 06/01/21 09:45 of Lip/Tongue/Throat losartan Allergy Unknown Unknown Verified 06/01/21 09:45 amlodipine AdvReac Unknown Unknown Verified 06/01/21 09:45 Beta-Blockers AdvReac Palpitation Verified 06/01/21 09:45 (Beta-Adrenergic Bloc s Home Medications Medication Instructions Recorded Confirmed Type levothyroxine 125 mcg tablet 125 mcg PO DAILY #90 tablet 11/15/19 06/01/21 Rx liothyronine 5 mcg PO BID 04/06/20 06/01/21 History telmisartan 80 mg PO DAILY 04/06/20 06/01/21 History omeprazole 40 mg PO DAILY 04/12/20 06/01/21 History escitalopram oxalate 10 mg tablet 10 mg PO DAILY 05/10/21 06/01/21 History sodium,potassium,mag sulfates See Rx Instructions .ROUTE 05/16/21 Rx [Suprep Bowel Prep Kit] .COMPLEX #1 ml Patient hx anesthesia problems: none Family hx anesthesia problems: none PMFSH Past Medical History Medical History Anxiety BPH (benign prostatic hyperplasia) Hemorrhoids HLD (hyperlipidemia) Patient denies Hypertension Hypothyroidism Normal colonoscopy (~2015) Every 3-5 years Shingles Surgical History Surgical History H/O hemorrhoidectomy S/P ORIF (open reduction internal fixation) fracture Left ankle Family History Family History Father Hypertension Mother Hypertension Grandparent Hypertension Cerebrovascular accident Other Family history of cardiovascular disease Social History Social History Social History: Patient states that he uses CBD but was found to be positive for cannabinoids on the . He has 3 children. He is in the process of getting after being 35 years . It is taking him a couple years to get a divorce. He works for a [employer] company. He denies any alcohol. He is a full code and does not have a power admitted attorneys. He lives on his own. Smoking status: Never smoker Tobacco type: cigarettes Second hand tobacco smoke exposure: Yes Alcohol intake: former Substance use: never Substance use type: does not use Living arrangements: alone Gender identity (if verbalized by the patient): Male Spiritual care concerns: No Anes - Eval Final PreProcedure Day of Procedure 06/01/21 10:14 Patient weight: obese Heart: regular rate and rhythm Lungs: clear to auscultation Airway: Mallampati scale class II Neurological: alert and oriented Last oral intake: >/= 8 hours ASA classification: III Emergent: no Anesthetic plan: proceed Anesthesia type and monitoring: general GIVS and standard monitoring Informed Consent: The patient's anesthetic plan and its attendant risks and benefits were discussed with the patient/family/POA. Questions were solicited and answers provided to the satisfaction of the patient/family/POA.
[2021-06-01 10:57] VITALS: BP 103/66; PULSE 96; RESP 18; O2SAT 96
[2021-06-01 11:07] VITALS: BP 113/76; PULSE 77; RESP 17; O2SAT 97
[2021-06-01 11:17] VITALS: BP 122/83; PULSE 75; RESP 18; O2SAT 98
== END 2021-06-01 11:31 | disposition home or self-care (01) ==
PROVIDERS: PCP Family Medicine Sports Medicine; Visit Provider Internal Medicine Gastroenterology
PROC: 0DJD8ZZ Inspection of Lower Intestinal Tract, Via Natural or Artificial Opening Endoscopic (ICD-10-PCS; CPT 45378; principal; 2021-06-01 10:15)
DX: K62.5 Hemorrhage of anus and rectum (principal); K57.30 Diverticulosis of large intestine without perforation or abscess without bleeding; K64.8 Other hemorrhoids; I10 Essential (primary) hypertension; E78.5 Hyperlipidemia, unspecified; E03.9 Hypothyroidism, unspecified; N40.0 Benign prostatic hyperplasia without lower urinary tract symptoms; F41.9 Anxiety disorder, unspecified
CPT/HCPCS: 45378; J2704; J7120

== ENCOUNTER 2021-08-01 13:28 | Outpatient (CLI) | payer BC, SELFPAY ==
[2021-08-01 13:58] LABS: Basophils Absolute Auto 0.1 K/mm3 (0.0-0.1); Basophils Percent Auto 0.8 % (0.2-1.2); Eosinophils Absolute Auto 0.2 K/mm3 (0-0.3); Eosinophils Percent Auto 2.1 % (0-4.4); Hematocrit 44.4 % (42.0-52.0); Hemoglobin 15.7 g/dL (14.0-18.0); Immature Granulocyte Absolute 0.06 K/mm3 (0.00-0.031); Immature Granulocyte Percent A 0.7 % (0-0.5); Lymphocytes Absolute Auto 4.04 K/mm3 (0.9-3.2); Lymphocytes Percent Auto 47.5 % (18.3-44.2); Mean Corpuscular HGB Conc 35.4 g/dl (32-36); Mean Corpuscular Hemoglobin 30.1 pg (26-34); Mean Corpuscular Volume 85.1 fl (80-100); Mean Platelet Volume 10.4 fl (7.4-10.4); Monocytes Absolute Auto 0.8 K/mm3 (0.1-0.6); Monocytes Percent Auto 9.2 % (2.6-8.5); Neutrophils Absolute Auto 3.4 K/mm3 (1.3-6.7); Neutrophils Percent Auto 39.7 % (45.5-73.1); Platelet Count Result 223 k/mm3 (150-375); Red Blood Count 5.22 M/mm3 (4.6-6.20); Red Cell Distribution Width 12.1 % (11.5-14.5); White Blood Count 8.5 K/mm3 (4.5-10.0)
[2021-08-01 14:33] LABS: Alanine Aminotransferase 33 U/L (4-50); Albumin Level 4.8 g/dL (3.5-5.1); Alkaline Phosphatase 113 U/L (38-126); Anion Gap 9 mmol/L (8-16); Aspartate Amino Transferase 30 U/L (17-59); Bilirubin,Total 0.8 mg/dL (0.2-1.3); Blood Urea Nitrogen 12 mg/dL (9-20); Calcium 9.4 mg/dL (8.4-10.2); Carbon Dioxide 28 mmol/L (22-30); Chloride 98 mmol/L (98-107); Cholesterol 185 mg/dL (0-200); Estimated Glomerular Filt Rate > 60; Glucose 91 mg/dL (65-110); HDL Direct 38 mg/dL; Potassium 3.9 mmol/L (3.4-5.0); Sodium 135 mmol/L (137-145); Triglycerides 131 mg/dL (<150)
[2021-08-01 14:47] LABS: LDL Cholesterol Direct 125 mg/dL
[2021-08-01 15:36] LABS: Folic Acid 19.2 ng/mL (2.76->20)
== END 2021-08-01 13:29 | disposition home or self-care (01) ==
LOC: ANHLAB 13:30
PROVIDERS: PCP Family Medicine Sports Medicine; Visit Provider Family Medicine Sports Medicine
DX: Z00.00 Encounter for general adult medical examination without abnormal findings (principal); Z12.5 Encounter for screening for malignant neoplasm of prostate; I10 Essential (primary) hypertension; N40.1 Benign prostatic hyperplasia with lower urinary tract symptoms
CPT/HCPCS: 36415; 80053; 80061; 82607; 82746; 84153; 84443; 85025; G0103

== ENCOUNTER 2021-10-23 16:14 | Outpatient (CLI) | payer OTHER, SELFPAY | END 2021-10-23 16:15 | disposition home or self-care (01) | LOC: ANHLAB 16:21 | PROVIDERS: PCP Family Medicine Sports Medicine; Visit Provider Nurse Practitioner Adult Health | DX: Z20.828 Contact with and (suspected) exposure to other viral communicable diseases (principal) | CPT/HCPCS: 36415; 86695; 86696 ==